=== PATIENT | female | born 2000 ===

== ENCOUNTER → 2019-04-05 | Outpatient (CLI) | payer OTHER ==
[~2019-04-05] MED LIST: SINCALIDE (KINEVAC) 5 MCG ONE
== END | disposition home or self-care (01) ==
LOC: PETCFH 10:05
PROVIDERS: ATTEND Nurse Practitioner Family
DX: K82.8 Other specified diseases of gallbladder (principal)
CPT/HCPCS: 78227; A9537; J2805

== ENCOUNTER 2019-09-25 08:18 | Day surgery (SDC) | payer OTHER ==
[~2019-09-25] VITALS: Ht 152.4 cm; Wt 70.4 kg
[~2019-09-25 08:18] MED LIST changes: +BUPIVACAINE/PF 0.5% ONE; -SINCALIDE (KINEVAC) 5 MCG ONE
[2019-09-25] MEDS ORDERED: PANT20TA3 PO (09:00)
[2019-09-25] MEDS ORDERED: ONDA4TAB7 PO (09:00)
[2019-09-25] MEDS ORDERED: PRED10TA PO (09:00)
[2019-09-25] MEDS ORDERED: GABAPENTIN 300 MG CAPSULE PO ONE (09:00)
[2019-09-25] MEDS ORDERED: ACETAMINOPHEN 500 MG TABLET PO ONE (09:00)
[2019-09-25] MEDS ORDERED: DICY10CA3 PO (09:00)
[2019-09-25] MEDS ORDERED: LACTATED RINGERS 1,000 ML IV SCH (09:00)
[2019-09-25 09:02] VITALS: BP 120/82
[2019-09-25] MEDS ORDERED: ACETAMINOPHEN 500 MG TABLET ONE (09:11)
[2019-09-25] MEDS ORDERED: GABAPENTIN 300 MG CAPSULE ONE (09:12)
[2019-09-25 09:25] LABS: HCG UR SG 1.019 (1.003-1.030)
[2019-09-25 09:56] LABS: ALANINE AMINOTRANSFERASE 82 U/L (12-78); ALBUMIN 4.1 g/dL (3.4-5.0); CREATININE 0.81 mg/dL (0.55-1.02)
[2019-09-25 09:59] LABS: ALKALINE PHOSPHATASE 86 U/L (45-117); ANION GAP 4 mmol/L (5-15); BILIRUBIN,TOTAL 0.5 mg/dL (0.2-1.0); CHLORIDE 105 mmol/L (98-107); TOTAL PROTEIN 7.5 g/dL (6.4-8.2)
[2019-09-25] MEDS ORDERED: PROMETHAZINE 25 MG/ML, 1ML IV PRN (10:30)
[2019-09-25] MEDS ORDERED: OXYcodone 5 MG/5 ML ORAL.SOL UDC PO PRN (10:30)
[2019-09-25] MEDS ORDERED: LABETALOL 5MG/ML, 20ML IV PRN (10:30)
[2019-09-25] MEDS ORDERED: HALOPERIDOL 5 MG/ML IV PRN (10:30)
[2019-09-25] MEDS ORDERED: hydrALAzine 20 MG/ML, 1ML IV PRN (10:30)
[2019-09-25] MEDS ORDERED: HYDROmorphone 2 MG/ML, 1ML IVPush PRN (10:30)
[2019-09-25] MEDS ORDERED: MEPERIDINE/PF 25MG/ML,1ML IVPush PRN (10:30)
[2019-09-25] MEDS ORDERED: MIDAZOLAM 1 MG/ML, 2ML ONE (10:32)
[2019-09-25] MEDS ORDERED: FENTANYL PF 250 MCG/5ML ONE (10:32)
[2019-09-25] MEDS ORDERED: KETOROLAC 30 MG/1 ML ONE (10:55)
[2019-09-25] MEDS ORDERED: DIPHENHYDRAMINE 50 MG/ML, 1ML ONE (10:55)
[2019-09-25] MEDS ORDERED: EPINEPHRINE 1 MG/ML, 1ML INFIL ONE (11:09)
[2019-09-25] MEDS ORDERED: GLYCOPYRROLATE 0.2MG/1ML, 5ML ONE (11:15)
[2019-09-25] MEDS ORDERED: SUCCINYLCHOLINE 20 MG/ML, 10ML ONE (11:15)
[2019-09-25] MEDS ORDERED: CEFAZOLIN 1,000 MG ONE (11:15)
[2019-09-25] MEDS ORDERED: ONDANSETRON 2MG/ML, 2ML ONE (11:15)
[2019-09-25] MEDS ORDERED: DEXAMETHASONE 4 MG/ML, 1ML ONE (11:15)
[2019-09-25] MEDS ORDERED: PROPOFOL 10 MG/ML, 20ML ONE (11:15)
[2019-09-25] MEDS ORDERED: ROCURONIUM 10MG/ML,5ML ONE (11:15)
[2019-09-25] MEDS ORDERED: NEOSTIGMINE 1 MG/ML, 10ML ONE (11:15)
[2019-09-25] MEDS: FENTANYL PF 100 MCG/2ML IV PRN ×3 (11:34→11:57)
[2019-09-25] MEDS ORDERED: FENTANYL PF 100 MCG/2ML ONE (11:36)
[2019-09-25] MEDS ORDERED: PROMETHAZINE 25 MG/ML, 1ML ONE (11:48)
== END 2019-09-25 14:30 | disposition home or self-care (01) ==
LOC: OUT 08:18
PROVIDERS: ATTEND Surgery
DX: K81.1 Chronic cholecystitis (principal); K21.9 Gastro-esophageal reflux disease without esophagitis; Z79.899 Other long term (current) drug therapy; Z87.891 Personal history of nicotine dependence; Z88.8 Allergy status to other drugs, medicaments and biological substances
CPT/HCPCS: 36415; 47562; 80053; 81025; 88304; J0171; J0330; J0690; J1100; J1200; J1885; J2250; J2405; J2704; J2710; J3010; J7120